=== PATIENT | male | born 1945 | race Caucasian/White ===

== ENCOUNTER 2017-07-09 12:23 | Outpatient (CLI) | payer MEDICARE ==
[~2017-07-09 12:23] MED LIST: Gadobenate Dimeglumine 529 MG/1 ML (20ML VIAL) ONE
--- NOTE | 2017-07-09 14:53 | RAD ---
FOUR VIEWS CERVICAL SPINE: Date: 07-09-17 Comparison: 09-16-14 History: Prior neck surgery. Neck and left shoulder pain with numbness and tingling of the left hand and fingers, left upper extremity radiculopathy. FINDINGS: There is mild anterolisthesis of C2 on C3 measuring 3 mm. There is disc space narrowing with degenera tive endplate change and anterior osteophyte formation at C3-4 and C4-5. Anterior discectomy and fusi on hardware is present at C6-7 and C6-7. Rotation limits assessment of the cervicothoracic junction o n the swimmer's lateral view. A degree of anterolisthesis is suspected at C7-T1 measuring in the 5 mm range, although evaluation is limited. Open mouth odontoid view demonstrates a normal appearing dens and C1-2 articulation. Bilateral facet and uncal vertebral osteophyte formation noted within the mid cervical spine, right greater than left, most prominent at C3-4 and C4-5. IMPRESSION: 1. Multilevel post-operative and degenerative change seen within the cervical spine as described mehrdad acuna POS: [facility]
--- NOTE | 2017-07-09 16:26 | MRI ---
MRI CERVICAL SPINE WITH AND WITHOUT CONTRAST: 07/09/17 Multiplanar and multisequential imaging cervical spine obtained. Postcontrast images were obtained wi th administration of 20 mL of Multihance IV. INDICATIONS: Neck pain. Left shoulder pain with numbness. Cervical disc degeneration and dizziness. COMPARISON: Comparison made to an MRI cervical spine dated 09/16/14. FINDINGS: The cervical vertebrae maintain height and alignment. Anterior plate and screws transfix C5, C6 and C 7. Mild to moderate degenerative changes are noted. Loss of disc space at C3-4 with hypertrophic dege nerative change. At C2-3, no significant disc bulge or spondylosis. There is evidence of mild left foraminal narrowing at this level due to facet and uncinate hypertrophy. At C3-4, posterior disc bulge and spondylosis impinge on the anterior cord. These changes indent and mildly flatten the anterior cord, slightly more pronounced paracentrally to the left. Similar finding s were present in 2014, although slightly more prominent today. There is left foraminal stenosis seco ndary to disc bulge, uncinate hypertrophy and facet hypertrophy. At C4-5, mild spondylosis. No significant cord impingement. Right foraminal narrowing due to facet an d uncinate hypertrophy. At C5-6, posterior fusion change. No significant posterior spondylitic change. The anterior subarachn oid space is effaced but is preserved. Mild foraminal narrowing on the left due to facet and uncinate hypertrophy. At C6-7, prior fusion. Anterior subarachnoid space is preserved. Mild foraminal encroachment on the r ight from facet and uncinate hypertrophy. Cord signal appears normally maintained. No evidence of myelomalacia. IMPRESSION: Cervical canal stenosis with cord impingement at C3-4 as described above. Left foraminal stenosis at this level as above. POS: [facility]
--- NOTE | 2017-07-09 16:37 | MRI ---
BRAIN MRI WITH AND WITHOUT CONTRAST 07/09/17 COMPARISON: 11/22/09. HISTORY: Intermittent balance difficulties with nausea, vomiting and dizziness. TECHNIQUE: Multiplanar and multisequence MRI imaging of the brain is provided with and without contrast. FINDINGS: There are numerous foci of increased T2 and FLAIR signal scattered throughout the periventricular yumi p and subcortical white matter bilaterally, which appears to have progressed since the prior examinat ion. These findings suggest a moderate degree of small vessel disease. No midline shift, mass effect or ventricular enlargement is seen. Axial gradient echo imaging demonstrates no evidence for intracra nial hemorrhage. The diffusion weighted imaging demonstrates no evidence for acute infarction. The postcontrast imagin g demonstrates no abnormal enhancement within the brain parenchyma. The paranasal sinuses and mastoid air cells appear grossly unremarkable. Arterial flow voids at axial level of skull base appear grossly unremarkable on the T2 weighted imagi ng. IMPRESSION: Small vessel disease. No acute findings. POS: [facility]
== END 2017-07-09 12:24 | disposition home or self-care (01) ==
LOC: SCSMRI 12:23
PROVIDERS: ATTEND Neurological Surgery
DX: M47.892 Other spondylosis, cervical region (principal); M50.30 Other cervical disc degeneration, unspecified cervical region; M48.02 Spinal stenosis, cervical region; M99.81 Other biomechanical lesions of cervical region; R42 Dizziness and giddiness; Z98.1 Arthrodesis status
CPT/HCPCS: 70553; 72040; 72156; 82565; A9579

== ENCOUNTER 2017-12-31 16:18 | Outpatient (CLI) | payer MEDICARE ==
--- NOTE | 2017-12-31 18:57 | RAD ---
CERVICAL SPINE RADIOGRAPH SERIES FOUR VIEWS: 12/31/17 INDICATION: Cervicalgia. FINDINGS: There is stable anterior fusion of C5 through C7. There is multilevel moderate degenerative change. N o interval acute hardware complication is identified within limitations as portions of the fusion sit e are somewhat obscured due to superimposition of structures. There is a stable degree of mild spondy lolisthesis (grade I) at C2-3. Flexion and extension views are performed without discernible translat ional motion of significance. IMPRESSION: Multilevel degenerative change and postoperative change of the cervical spine. No interval acute hard chaparro complication or discrete evidence for abnormal translational motion. Stable grade I spondylolist hesis at C2-3. POS: [facility]
== END 2017-12-31 16:19 | disposition home or self-care (01) ==
LOC: TBSIIMAG 16:18
PROVIDERS: ATTEND Neurological Surgery
DX: M54.2 Cervicalgia (principal); M47.812 Spondylosis without myelopathy or radiculopathy, cervical region; M43.12 Spondylolisthesis, cervical region; Z98.1 Arthrodesis status
CPT/HCPCS: 72040